=== PATIENT | male | born 1995 | race African-American/Black ===

== ENCOUNTER 2017-12-01 08:06 | Emergency (ER) | payer OTHER ==
[~2017-12-01] VITALS: Ht 170.2 cm; Wt 74.8 kg
[~2017-12-01 08:06] MED LIST: GARAMYCIN5 M1 OP
[2017-12-01] MEDS ORDERED: KEFLEX500 M1 PO (09:33)
[2017-12-01] MEDS ORDERED: TRAMADOL 50 MG50 MG PO (09:33)
[2017-12-01 10:38] VITALS: BP 95/64
== END 2017-12-01 09:45 | disposition home or self-care (01) ==
LOC: ER 08:06
DX: T23.272A Burn of second degree of left wrist, initial encounter (principal); T31.0 Burns involving less than 10% of body surface; Y27.2XXA Contact with hot fluids, undetermined intent, initial encounter; Y93.89 Activity, other specified; Y99.8 Other external cause status; Y92.89 Other specified places as the place of occurrence of the external cause